=== PATIENT | female | born 2000 ===

== ENCOUNTER 2020-07-07 10:47 | Outpatient (CLI) | payer MEDICAID | END 2020-07-07 23:59 | disposition home or self-care (01) | LOC: RAD 10:47 | PROVIDERS: ATTEND Obstetrics & Gynecology Maternal & Fetal Medicine | DX: Z34.02 Encounter for supervision of normal first pregnancy, second trimester (principal); R94.6 Abnormal results of thyroid function studies | CPT/HCPCS: 76536 ==